=== PATIENT | male | born 1995 ===

== ENCOUNTER 2019-10-14 16:57 | Emergency (ER) | payer SELFPAY ==
[~2019-10-14] VITALS: Ht 157.5 cm; Wt 97.5 kg
[2019-10-14 18:11] LABS: Source, Urine Clean Catch
[2019-10-14 18:16] LABS: Appearance, Urine Hazy (Clear); Bilirubin, Urine Neg (Neg); Blood, Urine Neg (Neg); Color, Urine Yellow (P-Yellow); Glucose Qualitative, Urine Neg (Neg); Ketones, Urine Neg (Neg); Leukocyte Esterase, Urine Neg (Neg); Nitrite, Urine Neg (Neg); Protein, Urine Neg (Neg); Specific Gravity, Urine 1.015 (1.003-1.022); Urobilinogen, Urine NORM (Normal)
[2019-10-14 18:21] LABS: Amorphous Heavy (0-Heavy); Bacteria Not Seen /hpf; Red Blood Cells, Urine 0-2 /hpf (0-2); Squamous Epithelial Cells Not Seen /hpf (Few); White Blood Cells, Urine 0-2 /hpf (0-5)
== END 2019-10-14 18:54 | disposition home or self-care (01) ==
LOC: ER 16:57
PROVIDERS: Nurse Practitioner
DX: N50.3 Cyst of epididymis (principal)
CPT/HCPCS: 76870; 81001; 99284-25